=== PATIENT | male | born 1980 | race Two or more races ===

== ENCOUNTER 2019-03-21 05:28 | Emergency (ER) | payer OTHER ==
[~2019-03-21] VITALS: Ht 172.7 cm; Wt 99.8 kg
[2019-03-21 05:33] VITALS: BP 183/109
[2019-03-21] MEDS ORDERED: UNABLE MC (06:04)
--- NOTE | 2019-03-21 06:09 | PHYS DOC ---
Past Medical History Past Medical History: Anxiety Past Surgical History: No Surgical History Alcohol Use: None Drug Use: None Adult General Chief Complaint Chief Complaint: NEEDLE STICK HPI HPI Patient is a 39 year old male who presents with chief complaint of needle stick. He lets a homeless person with hepatitis C live with him. He was downstairs cleaning up that gentlemen's room and he got stuck in the base of the thumb by a dry needle. He estimated that has not been used at least 2 or 3 days he was told there was no blood on it Current Medications Current Medications Current Medications Medications (Trade) Dose Ordered Sig/David Start Time Stop Time Status Last Admin Dose Admin Diphtheria/ Tetanus/Acell Pertussis (Boostrix) 0.5 ml ONCE ONCE 03/21/19 06:15 03/21/19 06:16 UNV Allergies Allergies Allergies Coded Allergies Type Severity Reaction Last Updated Verified No Known Drug Allergies 03/21/19 No Physical Exam Physical Exam Constitutional: Well developed, well nourished, mild anxious distress. slurred speech c/w known etoh intake that he told us about. HENT: Normocephalic, atraumatic, bilateral external ears normal, oropharynx moist, no oral exudates, nose normal. [] Eyes: PERRLA, EOMI, conjunctiva normal, no discharge. [] Neck: Normal range of motion, no tenderness, supple, no stridor. [] Pulmonary: Normal respiratory effort no increased work of breathing no obvious chest wall trauma Abdomen: Bowel sounds normal, soft, no tenderness, no masses, no pulsatile masses. [] Skin: There is no obvious laceration or abrasion to the base of the thumb no trauma was seen there Back: No tenderness, no CVA tenderness. [] Extremities: No tenderness, no cyanosis, no clubbing, ROM intact, no edema. [] Neurologic: Alert and oriented X 3, normal motor function, normal sensory function, no focal deficits noted. [] Psychologic: Affect normal, judgement normal, mood normal. [] Current Patient Data Vital Signs Vital Signs Date Time Temp Pulse Resp B/P (MAP) Pulse Ox O2 Delivery O2 Flow Rate FiO2 03/21/19 05:33 98.0 103 20 183/109 (133) 98 Room Air 98.0 EKG EKG [] Radiology/Procedures Radiology/Procedures [] Course & Med Decision Making Course & Med Decision Making Pertinent Labs and Imaging studies reviewed. (See chart for details) []Low risk needlestick with an old needle no blood on it. Apparently the patient's contact may have had hepatitis C he thinks the gentleman he lived with was HIV negative. He says he can confirm that with him. we will draw usual hep panel/chem panel labs. advised f/u with pmd next week for bp follow up and further evaluation. i dont think he needs PEP at this time. Dragon Disclaimer Dragon Disclaimer This electronic medical record was generated, in whole or in part, using a voice recognition dictation system. Departure Departure Impression: Primary Impression: Needle stick injury Disposition: 01 HOME, SELF-CARE Condition: STABLE Patient Instructions: Needle Stick Injury, [id number] Additional Instructions: SEE YOUR PRIMARY DOCTOR IN ONE WEEK FOR FOLLOW UP. ESPERANZA REDMAN MD Mar 21, 2019 06:09
[2019-03-21 06:36] LABS: CALCIUM 8.5 mg/dL (8.5-10.1); CREATININE 0.7 mg/dL (0.7-1.3); GFR 124.9; POTASSIUM 3.4 mmol/L (3.5-5.1)
[2019-03-21 06:41] LABS: ALBUMIN/GLOBULIN RATIO 0.8 (1.0-1.7); TOTAL BILIRUBIN 0.9 mg/dL (0.2-1.0); TOTAL PROTEIN 8.9 g/dL (6.4-8.2)
[2019-03-21] MEDS ORDERED: DIPHTH,PERTUSS(ACELL),TET TOX 0.5 ML DISP.SYRIN. VAX IM ONE (06:45)
== END 2019-03-21 06:20 | disposition home or self-care (01) ==
LOC: ER 05:28
DX: S60.932A Unspecified superficial injury of left thumb, initial encounter (principal); W46.0XXA Contact with hypodermic needle, initial encounter; Y93.89 Activity, other specified; Y92.89 Other specified places as the place of occurrence of the external cause; Y99.8 Other external cause status
CPT/HCPCS: 36415; 80053; 86705; 86709; 86803; 87340; 90471; 90715; 99284-25

== ENCOUNTER 2019-09-04 09:17 | Emergency (ER) | payer MEDICAID, OTHER ==
[~2019-09-04] VITALS: Ht 172.7 cm; Wt 102.1 kg
[~2019-09-04 09:17] MED LIST: UNABLE MC
[2019-09-04 09:28] VITALS: BP 167/115
--- NOTE | 2019-09-04 10:06 | PHYS DOC ---
Past Medical History Past Medical History: Anxiety Past Surgical History: Other Additional Past Surgical Histo: SKIN GRAFT Alcohol Use: Occasionally Drug Use: None Adult General Chief Complaint Chief Complaint: OTHER COMPLAINTS [facility] Patient is a 39 year old male who presented to ER today for evaluation of needle stuck ON RIGHT MIDDLE FINGER. he said he lived with his roommate who had hepatitis C, somehow he got stuck with a needle in his house, did not know if his roommate used that needle or not. Wanted to check to make sure he doesn't have hepatitis C. he denies history of hepatitis C, hepatitis B, or HIV. aLL OTHER ros IS NEGATIVE UNLESS OTHERWISE NOTED IN hpi Review of Systems Review of Systems See above Allergies Allergies Allergies Coded Allergies Type Severity Reaction Last Updated Verified No Known Drug Allergies 03/21/19 No Physical Exam Physical Exam See above Constitutional: Well developed, well nourished, no acute distress, non-toxic appearance. [] HENT: Normocephalic, atraumatic, bilateral external ears normal, oropharynx moist, no oral exudates, nose normal. [] Eyes: PERRLA, EOMI, conjunctiva normal, no discharge. [] Neck: Normal range of motion, no tenderness, supple, no stridor. [] Cardiovascular:Heart rate regular rhythm, no murmur [] Lungs & Thorax: Bilateral breath sounds clear to auscultation [] Abdomen: Bowel sounds normal, soft, no tenderness, no masses, no pulsatile masses. [] Skin: Warm, dry, no erythema, no rash. THERE IS SMALL SUPERFICIAL SKIN ABRASION ON THE PROXIMAL PHALANGE OF RIGHT MIDDLE FINGER ON EXTENSOR SURFACE, NO BLEEDING. Back: No tenderness, no CVA tenderness. [] Extremities: No tenderness, no cyanosis, no clubbing, ROM intact, no edema. [] Neurologic: Alert and oriented X 3, normal motor function, normal sensory function, no focal deficits noted. [] Psychologic: Affect normal, judgement normal, mood normal. [] Current Patient Data Vital Signs Vital Signs Date Time Temp Pulse Resp B/P (MAP) Pulse Ox O2 Delivery O2 Flow Rate FiO2 09/04/19 09:28 98.1 86 20 167/115 (132) 99 Room Air 98.1 Lab Values Laboratory Tests Test 09/04/19 09:45 Hepatitis A IgM Antibody Nonreactive (Nonreactive) Hepatitis B Surface Antigen Nonreactive (Nonreactive) Hepatitis B Core IgM Antibody Nonreactive (Nonreactive) Hepatitis C IgG Antibody Nonreactive (Nonreactive) EKG EKG [] Radiology/Procedures Radiology/Procedures [] Course & Med Decision Making Course & Med Decision Making Pertinent Labs and Imaging studies reviewed. (See chart for details) BASELINE ACUTE HEPATITIS PANEL WAS DONE TODAY. HE WILL NEED TO FOLLOW UP WITH HIS DOCTOR IN 3 MONTHS TO HAVE ANOTHER HEPATITIS PANEL DONE. Dragon Disclaimer Dragon Disclaimer This electronic medical record was generated, in whole or in part, using a voice recognition dictation system. Departure Departure Impression: Primary Impression: Needle stick injury of finger of right hand Disposition: HOME, SELF-CARE Condition: STABLE Referrals: UNKNOWN PCP NAME (PCP) Patient Instructions: Needle Stick Injury CRICKET CHAPA DO Sep 04, 2019 10:06
== END 2019-09-04 10:10 | disposition home or self-care (01) ==
LOC: ER 09:17
DX: S60.412A Abrasion of right middle finger, initial encounter (principal); W46.1XXA Contact with contaminated hypodermic needle, initial encounter; Y93.89 Activity, other specified; Y92.89 Other specified places as the place of occurrence of the external cause; Y99.8 Other external cause status
CPT/HCPCS: 36415; 86705; 86709; 86803; 87340; 99284

== ENCOUNTER 2021-04-13 01:33 | Emergency (ER) | payer MEDICAID ==
[~2021-04-13] VITALS: Ht 172.7 cm; Wt 106.8 kg
[2021-04-13 01:40] VITALS: BP 121/75
[2021-04-13] MEDS ORDERED: CIPR500T2 PO (02:11)
--- NOTE | 2021-04-13 02:11 | PHYS DOC ---
Past Medical History Past Medical History: Anxiety Past Surgical History: Other Additional Past Surgical Histo: SKIN GRAFT Smoking Status: Current Every Day Smoker Alcohol Use: Occasionally Drug Use: None General Adult EDM: Chief Complaint: DIARRHEA HPI: HPI: Patient is a 41 year old male presents with the chief complaint of diarrhea with blood. Onset of diarrhea yesterday. Denies any associated abdominal pain, nausea or vomiting. No other symptoms- Review of Systems: Review of Systems: Constitutional: Denies fever or chills. [] Eyes: Denies change in visual acuity. [] HENT: Denies nasal congestion or sore throat. [] Respiratory: Denies cough or shortness of breath. [] Cardiovascular: Denies chest pain or edema. [] GI: Denies abdominal pain, nausea, vomiting, Positive bloody stools or diarrhea. [] : Denies dysuria. [] Musculoskeletal: Denies back pain or joint pain. [] Integument: Denies rash. [] Neurologic: Denies headache, focal weakness or sensory changes. [] Endocrine: Denies polyuria or polydipsia. [] Lymphatic: Denies swollen glands. [] Psychiatric: Denies depression or anxiety. [] Heart Score: C/O Chest Pain: N/A Risk Factors: Risk Factors: DM, Current or recent (<one month) smoker, HTN, HLP, family history of CAD, obesity. Risk Scores: Score 0 - 3: 2.5% MACE over next 6 weeks - Discharge Home Score 4 - 6: 20.3% MACE over next 6 weeks - Admit for Clinical Observation Score 7 - 10: 72.7% MACE over next 6 weeks - Early Invasive Strategies Allergies: Allergies: Allergies Coded Allergies Type Severity Reaction Last Updated Verified No Known Drug Allergies 03/21/19 No Physical Exam: PE: Constitutional: Well developed, well nourished, no acute distress, non-toxic appearance. [] HENT: Normocephalic, atraumatic, bilateral external ears normal, oropharynx moist, no oral exudates, nose normal. [] Eyes: PERRLA, EOMI, conjunctiva normal, no discharge. [] Neck: Normal range of motion, no tenderness, supple, no stridor. [] Cardiovascular:Heart rate regular rhythm, no murmur [] Lungs & Thorax: Bilateral breath sounds clear to auscultation [] Abdomen: Bowel sounds normal, soft, no tenderness, no masses, no pulsatile masses. [] Skin: Warm, dry, no erythema, no rash. [] Back: No tenderness, no CVA tenderness. [] Extremities: No tenderness, no cyanosis, no clubbing, ROM intact, no edema. [] Neurologic: Alert and oriented X 3, normal motor function, normal sensory function, no focal deficits noted. [] Psychologic: Affect normal, judgement normal, mood normal. [] EKG: EKG: [] Radiology/Procedures: Radiology/Procedures: [] Course & Med Decision Making: Course & Med Decision Making Pertinent Labs and Imaging studies reviewed. (See chart for details) []Rx cipro. Milad Disclaimer: Milad Disclaimer: This electronic medical record was generated, in whole or in part, using a voice recognition dictation system. Departure Departure Impression: Primary Impression: Diarrhea Disposition: HOME / SELF CARE / HOMELESS Condition: STABLE Referrals: UNKNOWN PCP NAME (PCP) Patient Instructions: Bloody Diarrhea, Diet for Diarrhea, Adult Scripts Ciprofloxacin Hcl (CIPROFLOXACIN HCL) 500 Mg Tablet 1 TAB PO BID, #14 TAB Prov: ANGELO DUBOSE DO 04/13/21 ANGELO DUBOSE DO Apr 13, 2021 02:11
== END 2021-04-13 02:23 | disposition home or self-care (01) ==
LOC: ER 01:33
DX: R19.7 Diarrhea, unspecified (principal); F41.9 Anxiety disorder, unspecified; F17.200 Nicotine dependence, unspecified, uncomplicated
CPT/HCPCS: 99283

== ENCOUNTER 2021-05-11 16:51 | Emergency (ER) | payer MEDICAID ==
[~2021-05-11] VITALS: Ht 175.3 cm; Wt 97.5 kg
[~2021-05-11 16:51] MED LIST changes: +CIPR500T2 PO
[2021-05-11 18:29] VITALS: BP 121/75
--- NOTE | 2021-05-11 19:17 | PHYS DOC ---
Past Medical History Past Medical History: Anxiety Additional Past Medical Histor: PTSD, AGOROPHOBIA, CHOLITIS (RUCHI MERCHANT Gabby FLOOR TRADER) Past Surgical History: Other Additional Past Surgical Histo: SKIN GRAFT (RUCHI MERCHANT Gabby FLOOR TRADER) Smoking Status: Current Some Day Smoker Alcohol Use: Occasionally Drug Use: None (RUCHI MERCHANT Gabby FLOOR TRADER) General Adult EDM: Chief Complaint: DENTAL PROBLEM HPI: HPI: Patient is a 41 year old male who presents to the ED today with right lower gum dental pain, symptoms for 2 days. Denies any fever. Rates the pain a 10 out of 10, describes the pain as throbbing and constant. He states he has tried using Anbesol with no relief. (RUCHI MERCHANT Gabby FLOOR TRADER) Review of Systems: Review of Systems: Constitutional: Denies fever or chills. [] HENT: Reports right lower gum dental pain. Denies nasal congestion or sore throat. [] Musculoskeletal: Denies back pain or joint pain. [] Integument: Denies rash. [] Neurologic: Denies headache, focal weakness or sensory changes. [] Psychiatric: Denies depression or anxiety. [] (MAYURRUCHI Pierre FLOOR TRADER) Heart Score: C/O Chest Pain: N/A Risk Factors: Risk Factors: DM, Current or recent (<one month) smoker, HTN, HLP, family history of CAD, obesity. Risk Scores: Score 0 - 3: 2.5% MACE over next 6 weeks - Discharge Home Score 4 - 6: 20.3% MACE over next 6 weeks - Admit for Clinical Observation Score 7 - 10: 72.7% MACE over next 6 weeks - Early Invasive Strategies (BELGICAAguedaRUCHI Gabby FLOOR TRADER) Allergies: Allergies: Allergies Coded Allergies Type Severity Reaction Last Updated Verified No Known Drug Allergies 03/21/19 No (BELGICARUCHI Romeo FLOOR TRADER) Physical Exam: PE: Constitutional: Well developed, well nourished, no acute distress, non-toxic appearance. [] HENT: Normocephalic, atraumatic, bilateral external ears normal, oropharynx moist, no oral exudates, nose normal. [] Very poor dentition. Right lower gum with small amount of swelling and erythema, no fluctuance. Skin: Warm, dry, no erythema, no rash. [] Back: No tenderness, no CVA tenderness. [] Extremities: No tenderness, no cyanosis, no clubbing, ROM intact, no edema. [] Neurologic: Alert and oriented X 3, normal motor function, normal sensory function, no focal deficits noted. [] Psychologic: Affect normal, judgement normal, mood normal. [] (RUCHI MERCHANT APRN) Current Patient Data: Vital Signs: Vital Signs Date Time Temp Pulse Resp B/P (MAP) Pulse Ox O2 Delivery O2 Flow Rate FiO2 05/11/21 18:29 98.3 97 16 121/75 (132) 97 Room Air 98.3 (RUCHI MERCHANT APRN) EKG: EKG: [] (RUCHI MERCHANT APRN) Radiology/Procedures: Radiology/Procedures: [] (RUCHI MERCHANT APRN) Course & Med Decision Making: Course & Med Decision Making Pertinent Labs and Imaging studies reviewed. (See chart for details) This is a 41-year-old male patient with dental abscess. Discharged on amoxicillin and tramadol. Follow-up with his own dentist in 1 week (RUCHI MERCHANT APRN) Course & Med Decision Making Patients Care and treatment plan provided by ER Nurse Practitioner. I was available for consult. Patient's chart reviewed. (ANGELO DUBOSE DO) Milad Disclaimer: Milad Disclaimer: This electronic medical record was generated, in whole or in part, using a voice recognition dictation system. (RUCHI MERCHANT APRN) Departure Departure Impression: Primary Impression: Dentalgia Additional Impression: Dental abscess Disposition: HOME / SELF CARE / HOMELESS Condition: STABLE Referrals: UNKNOWN PCP NAME (PCP) follow up with your doctor in one week Patient Instructions: Dental Abscess Additional Instructions: You have a dental infection. Take the prescribed antibiotics until completed. Take the pain medicine as needed for pain. Follow-up with the dentist in 1 to 2 weeks Scripts Tramadol Hcl (TRAMADOL HCL) 50 Mg Tablet 50 MG PO Q6HRS PRN for PAIN, #20 TAB Prov: RUCHI MERCHANT APRN 05/11/21 Amoxicillin (AMOXICILLIN) 500 Mg Tablet 1 TAB PO BID, #20 TAB Prov: RUCHI MERCHANT APRN 05/11/21 Amoxicillin (AMOXICILLIN) 500 Mg Tablet 1 TAB PO BID, #20 TAB Prov: RUCHI MERCHANT APRN 05/11/21 RUCHI MERCHANT APRN May 11, 2021 19:17 ANGELO DUBOSE DO May 14, 2021 18:19
[2021-05-11] MEDS ORDERED: AMOX500T PO ×2 (19:31→19:34)
[2021-05-11] MEDS ORDERED: TRAM50TA PO ×2 (19:31→19:34)
== END 2021-05-11 19:48 | disposition home or self-care (01) ==
LOC: ER 16:51
DX: K04.7 Periapical abscess without sinus (principal); F41.9 Anxiety disorder, unspecified; F17.200 Nicotine dependence, unspecified, uncomplicated
CPT/HCPCS: 99283

== ENCOUNTER 2021-05-19 06:20 | Emergency (ER) | payer MEDICAID ==
[~2021-05-19] VITALS: Ht 172.7 cm; Wt 94.5 kg
[~2021-05-19 06:20] MED LIST changes: +AMOX500T PO; +TRAM50TA PO
[2021-05-19] MEDS ORDERED: PENI500T PO (07:28)
--- NOTE | 2021-05-19 07:29 | PHYS DOC ---
Past Medical History Past Medical History: Anxiety, Other Additional Past Medical Histor: PTSD, AGOROPHOBIA, CHOLITIS Past Surgical History: Other Additional Past Surgical Histo: SKIN GRAFT Smoking Status: Current Some Day Smoker Alcohol Use: Occasionally Drug Use: None General Adult EDM: Chief Complaint: ABSCESS HPI: HPI: 41-year-old male past medical history ulcerative colitis, presents to the ED with complaints of lower jaw pain stating "the pain initially went away, I completed my antibiotics." Pain started back last night, thinks he was brushing his teeth too aggressively and cut his gum. Reports was seen in the ED previously for this. Patient states " tramadol did not do anything," so he drank a few beers last night to help with the pain. States he and his mother have been in contact with the dental clinic-is confused regarding their recommendations. Brohard teeth have not been removed and was told his right lower wisdom teeth grew in incorrectly-this was site of pain 8 days ago. Reports he deals with chronic pain from UC and follows at . EMR was reviewed and patient was seen 8 days ago and prescribed 10 days of amoxicillin and 20 tablets of tramadol. Review of Systems: Review of Systems: Constitutional: Denies fever or chills. [] Eyes: Denies change in visual acuity. [] HENT: Denies nasal congestion or sore throat. [] Respiratory: Denies cough or shortness of breath or speech changes or drooling Cardiovascular: Denies chest pain or edema. [] GI: Denies nausea, vomiting Integument: Denies rash or diaphoresis Neurologic: Denies headache, facial droop, neck stiffness, focal weakness or sensory changes. [] Psychiatric: Denies depression or anxiety. [] Heart Score: C/O Chest Pain: No Risk Factors: Risk Factors: DM, Current or recent (<one month) smoker, HTN, HLP, family history of CAD, obesity. Risk Scores: Score 0 - 3: 2.5% MACE over next 6 weeks - Discharge Home Score 4 - 6: 20.3% MACE over next 6 weeks - Admit for Clinical Observation Score 7 - 10: 72.7% MACE over next 6 weeks - Early Invasive Strategies Allergies: Allergies: Allergies Coded Allergies Type Severity Reaction Last Updated Verified No Known Drug Allergies 03/21/19 No Physical Exam: PE: Constitutional: Well developed, well nourished, no acute distress, non-toxic appearance, smells of alcohol - steady gait/clinically sober, sitting on ed chair watching ed staff HENT: Normocephalic, atraumatic, pea-sized swelling located over tooth #26 - lower teeth are rammed together-i suspect impacted right sided wisdom teeth causing this Eyes: EOMI, conjunctiva normal, no discharge. Neck: Normal range of motion, supple, Cardiovascular: S1/2 present, regular rhythm Lungs & Thorax: Speaking in full sentences, bilateral equal chest rise, no tachypnea or increased work of breathing, clear speech, no drooling Skin: Warm, dry, Extremities: No tenderness, no cyanosis, Neurologic: Alert and oriented X 3, normal motor function, normal sensory function, no focal deficits noted. [] Psychologic: Affect normal, judgement normal, mood normal. [] Current Patient Data: Vital Signs: Vital Signs Date Time Temp Pulse Resp B/P (MAP) Pulse Ox O2 Delivery O2 Flow Rate FiO2 05/19/21 06:30 97.4 102 22 143/92 (109) 96 Room Air 97.4 EKG: EKG: [] Radiology/Procedures: Radiology/Procedures: [] Course & Med Decision Making: Course & Med Decision Making Pertinent Labs and Imaging studies reviewed. (See chart for details) Concern for periapical abscess the patient reports is in a new location compared to prior ED visit. Patient was warned not to mix tramadol and beer-that this could cause apnea/. Dental clinic referral given-I encouraged pt get a s econd opinion. Will prescribe Pen-VK and commend [id number] analgesia. Will discharge home with strict ED return precautions were given for fever, headache, neurologic deficits, nuchal rigidity, head or neck swelling or difficulties breathing. Encouraged urgent outpatient follow-up with PMD for routine care and dental clinic within 24 to 48 hours. Life-threatening processe s were considered but are low suspicion at this time, given history, physical exam and ED workup. Pt was educated on all prescription medications and adverse effects. All patient's questions were answered and pt was stable at time of discharge. Life/limb-threatening differential includes but is not limited to, Eran's angina, infection (periodontal or peritonsillar abscess, retropharyngeal abscess, Vincents angina, ANUG, pharyngeal/buckle attaching machine operator/buccal space infection), trauma or fracture, dental fracture/subluxation/avulsion, dental bleeding or hemorrhage/DIC, pulpitis, alveolar osteitis or neoplasm I have spoken with the patient and/or caregivers. I explained the patient's condition, diagnoses and treatment plan based on the information available to me at this time. I have answered the patient and/or caregiver's questions and addressed any concerns. The patient and/or caregivers have a good understanding of patient's diagnosis, condition and treatment plan as can be expected at this point. Vital signs have been stable. Patient's condition is stable and appropriate for discharge from the emergency department. Patient will pursue further outpatient evaluation with primary care physician or other designated or consulting physician as outlined in the discharge instructions. The patient and/or caregivers are agreeable to this plan of care and follow-up instructions have been explained in detail. The patient and/or caregivers have received these instructions in written form and have expressed an understanding of the discharge instructions. The patient and/or caregivers are aware that any significant change of condition or worsening of symptoms should prompt immediate return to this or the closest emergency department or call to 1[facility] Stinson Disclaimer: Milad Disclaimer: This electronic medical record was generated, in whole or in part, using a voice recognition dictation system. Departure Departure Impression: Primary Impression: Periapical abscess Additional Impression: Pain, dental Disposition: 01 HOME / SELF CARE / HOMELESS Condition: STABLE Referrals: NO PCP (PCP) Follow-up with your primary care physician in 24 to 48 hours OR FOLLOW UP WITH FAMILY MEDICINE: [address], [address] [place] [address] Patient Instructions: Dental Abscess, Dental Pain Additional Instructions: EMERGENCY DEPARTMENT GENERAL DISCHARGE INSTRUCTIONS Thank you for coming to [facility] Emergency Department (ED) today and trusting us with you care. We trust that you had a positive experience in our Emergency Department. If you wish to speak to the department management, you may call the Director at [phone]. YOUR FOLLOW UP INSTRUCTIONS ARE FOLLOWS: 1. Do you have a private Doctor? If you do not have a private doctor, please ask for a resource list of physicians or clinics that may be able to assist you with follow up care. ADDITIONAL INSTRUCTIONS AND INFORMATION: 1. Your care today has been supervised by a physician who is specially trained in emergency care. Many problems require more than one evaluation for a complete diagnosis and treatment. We recommend that you schedule your follow up appointment as recommended to ensure complete treatment of you illness or injury. If you are unable to obtain follow up care and continue to have a problem, or if your condition worsens, we recommend that you return to the ED. 2. We are not able to safely determine your condition over the phone nor are we able to give sound medical advice over the phone. For these safety reasons, if you call for medical advice we will ask you to come to the ED for further evaluation. 3. If you have any questions regarding these discharge instructions please call the ED at [phone]. SAFETY INFORMATION: In the interest of safety, wellness, and injury prevention; we encourage you to wear your sealbelt, if you smoke; quite smoking, and we encourage family to use a prote ctive helmet for bicycling and other sporting events that present an increased risk for head injury. IF YOUR SYMPTOMS WORSEN OR NEW SYMPTOMS DEVELOP, OR YOU HAVE CONCERNS ABOUT YOUR CONDITION; OR IF YOUR CONDITION WORSENS WHILE YOU ARE WAITING FOR YOUR FOLLOW UP APPOINTMENT; EITHER CONTACT YOUR PRIMARY CARE DOCTOR, THE PHYSICIAN WHOSE NAME AND NUMBER YOU WERE GIVEN, OR RETURN TO THE ED IMMEDIATELY. Scripts Penicillin V Potassium (PENICILLIN V POTASSIUM) 500 Mg Tablet 1 TAB PO QID, #40 TAB Prov: JENNIFER GROVE DO 05/19/21 JENNIFER GROVE DO May 19, 2021 07:29
[2021-05-19 08:18] VITALS: BP 146/94
== END 2021-05-19 08:22 | disposition home or self-care (01) ==
LOC: ER 06:20
DX: K04.7 Periapical abscess without sinus (principal); F41.9 Anxiety disorder, unspecified; F17.200 Nicotine dependence, unspecified, uncomplicated
CPT/HCPCS: 99283

== ENCOUNTER 2021-06-03 04:31 | Emergency (ER) | payer MEDICAID ==
[~2021-06-03] VITALS: Ht 175.3 cm; Wt 100.0 kg
[~2021-06-03 04:31] MED LIST changes: +PENI500T PO
[2021-06-03 04:45] VITALS: BP 145/93
[2021-06-03] MEDS ORDERED: DEXAMETHASONE 4 MG TABLET PO ONE (05:00)
[2021-06-03] MEDS ORDERED: CHLO15MO2 PO (05:01)
[2021-06-03] MEDS ORDERED: PRED20TA PO (05:01)
[2021-06-03] MEDS ORDERED: CLIN300C9 PO (05:01)
--- NOTE | 2021-06-03 05:01 | PHYS DOC ---
Past Medical History Past Medical History: Anxiety, Other Additional Past Medical Histor: PTSD, AGOROPHOBIA, ulcerative colitis Past Surgical History: Other Additional Past Surgical Histo: SKIN GRAFT Smoking Status: Current Some Day Smoker Alcohol Use: Occasionally Drug Use: None General Adult EDM: Chief Complaint: MULTIPLE COMPLAINTS HPI: HPI: 41-year-old male presents with report of bilateral earache and jaw pain that has been ongoing for the past 4 to 5 days. Patient has been seen multiple times in the last month for jaw pain concerning for dental abscess. Patient was started on antibiotics. Patient reports has followed with dentist who took imaging and pulled a tooth in the front. Patient reports he needs to have several other teeth pulled due to crowding and impaction primarily at his wisdom teeth. Patient denies any fever. Denies trauma. Patient reports concern there might be something wrong with his ears. Review of Systems: Review of Systems: Constitutional: Denies fever or chills Eyes: Denies redness or eye pain HENT: Denies nasal congestion or sore throat; reports bilateral earache and bilateral lower jaw pain Respiratory: Denies cough or shortness of breath Cardiovascular: Denies chest pain or palpitations GI: Denies abdominal pain, nausea, or vomiting : Denies dysuria or hematuria Musculoskeletal: Denies back pain or joint pain Integument: Denies rash or skin lesions Neurologic: Denies headache, focal weakness or sensory changes Complete systems were reviewed and found to be within normal limits, except as documented in this note. Heart Score: C/O Chest Pain: N/A Allergies: Allergies: Allergies Coded Allergies Type Severity Reaction Last Updated Verified No Known Drug Allergies 03/21/19 No Physical Exam: PE: Constitutional: Well developed, well nourished, no acute distress, non-toxic appearance HENT: Normocephalic, atraumatic, mandibular wisdom tooth impactions bilaterally, no gingival swelling or fluctuance noted consistent for abscess, bilateral TMs clear, external canals normal Eyes: Conjunctiva normal, no discharge Neck: Normal range of motion, supple Lungs & Thorax: No respiratory distress, equal chest rise and fall Skin: Warm, dry, no erythema, no rash Extremities: No tenderness, ROM intact, no edema Neurologic: Alert and oriented X 3, no focal deficits noted Psychologic: Affect normal, judgment normal EKG: EKG: [] Radiology/Procedures: Radiology/Procedures: [] Course & Med Decision Making: Course & Med Decision Making Patient presents with dental pain. Some small caries noted however no large dental abscess appreciated on physical exam. Patient is afebrile. Symptomatic treatment provided with oral steroid. Will prescribe Peridex in addition. Will add empiric antibiotic with instructions to watch and wait. Patient stable for discharge with outpatient follow-up with PCP/dentist. Discussed findings and plan with patient, who acknowledges understanding and agreement. Milad Disclaimer: Milad Disclaimer: This electronic medical record was generated, in whole or in part, using a voice recognition dictation system. Departure Departure Impression: Primary Impression: Dentalgia Additional Impression: Otalgia of both ears Disposition: HOME / SELF CARE / HOMELESS Condition: STABLE Referrals: NO PCP (PCP) Patient Instructions: Otalgia, Toothache-Brief Additional Instructions: Take [id number] ibuprofen and/or Tylenol for pain or discomfort. Hold antibiotics for 48 hours. If symptoms worsen or for fever > 100.3 F after 48 hours then start antibiotics as prescribed. Scripts Chlorhexidine Gluconate (PERIDEX) 15 Ml Mouthwash 15 ML PO BID for 7 Days, #473 ML 0 Refills Prov: AURORA AVINA DO 06/03/21 Clindamycin Hcl (CLINDAMYCIN HCL) 300 Mg Capsule 1 CAP PO TID for Infection for 7 Days, #21 CAP Prov: AURORA AVINA DO 06/03/21 Prednisone (PREDNISONE) 20 Mg Tablet 2 TAB PO DAILY, #8 TAB Start this prescription tomorrow, Saturday06/04/21 Prov: AURORA AVINA DO 06/03/21 AURORA AVINA DO Jun 03, 2021 05:01
== END 2021-06-03 04:45 | disposition home or self-care (01) ==
LOC: ER 04:31
DX: H92.03 Otalgia, bilateral (principal); K08.89 Other specified disorders of teeth and supporting structures; F41.9 Anxiety disorder, unspecified; F17.200 Nicotine dependence, unspecified, uncomplicated
CPT/HCPCS: 99283